=== PATIENT | female | born 1960 | race Caucasian/White ===

== ENCOUNTER 2024-09-14 15:07 | Outpatient (CLI) | payer MEDICARE, BC, SELFPAY | END 2024-09-14 15:08 | disposition home or self-care (01) | LOC: NFLDREF 09-16 04:16 | PROVIDERS: PCP Physician Assistant; Referring Provider Physician Assistant; Visit Provider Nurse Practitioner | DX: N30.01 Acute cystitis with hematuria (principal); B96.20 Unspecified Escherichia coli [E. coli] as the cause of diseases classified elsewhere | CPT/HCPCS: 87086 ==

== ENCOUNTER 2025-06-02 11:27 | Emergency (ER) | payer MEDICARE, BC, SELFPAY ==
[2025-06-02 11:30] VITALS: BP 112/79; PULSE 70; RESP 16; TEMP 35.8; O2SAT 95; BMI 35.2
--- NOTE | 2025-06-02 11:48 | ED.GENADULT ---
HPI - General Adult General Chief complaint: Jaw Injury/Pain Stated complaint: R side jaw pain Time Seen by Provider: 06/02/25 11:48 History of Present Illness HPI narrative: R lower jaw pain started , radiates to ear and back of head. also having R sided headaches, sent from urgent care and when they asked her how her vision was she noticed it has been worse than usual 65-year-old woman presenting to the emergency department with complaint right-sided jaw pain and swelling. This pain under the right lower jaw on kind of at the angle of the jaw began about 6 days ago. It radiates up to her ear and somewhat back around to her head as well. She has been having some intermittent pulsatile right-sided headaches lasting just a few seconds. Gestures to the temporal area. Presented to urgent care earlier today and admitted that her vision isn't as good. Does have a history of a dental problem on the upper right maxillary area but she does not believe she has had any issues with her mandible otherwise. No reported lightheadedness or dizziness. No fever. No trauma. No difficulty swallowing or breathing. Related Data Home Medications ?Medication ?Instructions ?Recorded ?Confirmed GLP1 subcut 06/05/24 06/02/25 atorvastatin 20 mg tablet 20 mg PO QPM 06/05/24 06/02/25 celecoxib 200 mg capsule 200 mg PO DAILY 06/05/24 06/02/25 escitalopram oxalate 10 mg tablet 10 mg PO QAM 06/05/24 06/02/25 estradiol 0.01% (0.1 mg/gram) 1 g vaginal 2XW 06/05/24 06/02/25 vaginal cream levothyroxine 75 mcg tablet 75 mcg PO DAILY 06/05/24 06/02/25 omeprazole 20 mg capsule,delayed 20 mg PO DAILY 06/05/24 06/02/25 release Previous Rx's ?Medication ?Instructions ?Recorded ondansetron 4 mg disintegrating 4 mg PO Q8H PRN nausea and 09/14/24 tablet vomiting #10 tabs Allergies Allergy/AdvReac Type Severity Reaction Status Date / Time No Known Drug Allergies Allergy Verified 06/02/25 10:44 Review of Systems Status of ROS: Reports: 6 or more systems reviewed and unremarkable except as noted in History and below PFSH PFSH Social History Smoking Status: Former smoker How often do you have a drink containing alcohol: never How often do you have six or more drinks on one occasion: Never AUDIT-C Alcohol total score: 0 Non-prescribed substance use: denies use Exam Narrative: Exam Narrative: Pleasant. NAD. But does appear as if she does not feel very good. Breathing easily. Neck is supple. No pulsatile masses. She is sore to palpation under the right submandibular area. I do not appreciate much swelling however. She is also sore to palpation at the angle of the jaw. Not TMJ tenderness discretely. TMs bilaterally are scarred left greater than right but no inflammatory change. She has some soreness to insertion at the right occipital scalp. Cranial nerves 2-12 intact. Pupils are equal and briskly reactive. Breathing easily. Heart in regular rate and rhythm. Oropharyngeal exam is without evidence of dental problems. No swelling the gingiva. I do not see inflammation of the parotid duct a nor of the submandibular or salivary area. I do not see any swelling at the temples. Const: Vital Signs, click to edit/add: Vital Signs - 24 hr 06/02/25 11:30 06/02/25 13:32 Temperature 96.4 F L Pulse Rate [Pulse Oximeter] 70 69 Respiratory Rate 16 16 Blood Pressure [Ri t Upper Arm] 112/79 120/73 Pulse Oximetry 95 97 Oxygen Delivery Me thod Room Air Room Air Documenting provider has reviewed patient's vital signs: yes Course Vital Signs Vital signs: Initial Vital Signs Temperature 96.4 F L 06/02/25 11:30 Temperature Source Temporal Artery Scan 06/02/25 11:30 Pulse Rate 70 06/02/25 11:30 Respiratory Rate 16 06/02/25 11:30 Blood Pressure 112/79 06/02/25 11:30 Blood Pressure Mean 90 06/02/25 11:30 Blood Pressure Position Sitting 06/02/25 11:30 Pulse Oximetry 95 06/02/25 11:30 Oxygen Delivery Method Room Air 06/02/25 11:30 Vital Signs Temperature 96.4 F L 06/02/25 11:30 Pulse Rate 70 06/02/25 11:30 Respiratory Rate 16 06/02/25 11:30 Blood Pressure 112/79 06/02/25 11:30 Pulse Oximetry 95 06/02/25 11:30 Oxygen Delivery Method Room Air 06/02/25 11:30 Temperature 96.4 F L 06/02/25 11:30 Pulse Rate 69 06/02/25 13:32 Respiratory Rate 16 06/02/25 13:32 Blood Pressure 120/73 06/02/25 13:32 Pulse Oximetry 97 06/02/25 13:32 Oxygen Delivery Method Room Air 06/02/25 13:32 Medical Decision Making MDM Narrative Medical decision making narrative: I do think this is some irritation of the submandibular gland based on physical exam. Might have some inflamed nodes more posteriorly causing some discomfort. I think concern urgent care was possible temporal arteritis/giant cell for which she was directed to the emergency department. Does not feel that she needs any treatment for headache or nausea at this time. Will check standard labs continue to monitor. Headache may be partially related to cervical muscle tension. Labs are reassuring; would not meet criteria for temporal arteritis per I think concern. The jaw discomfort I do not think is, also per concern, radiating cardiac pain. Instead I think is related to submandibular gland. Stable vitals no events on monitor during time in the emergency department. See patient discharge plan for further discussion Cold packs might be helpful yet to the neck but warm packs might help the discomfort under your submandibular jaw. Might also try sialagogues like lemon drops. Consider repeated daily forward pull-downs of your neck. See handout also for stretches for the upper back. These might be helpful going forward. Be seen for marked increase in swelling or pain or redness, fever. Wishing you well this iday season. Medical Records Medical records reviewed: Yes I reviewed the patient's medical records Lab Data Lab results reviewed: Yes I reviewed the patient's lab results Labs: Lab Results 06/02/25 Range/Units 12:55 WBC 5.17 (4.50-11.00) K/uL RBC 4.52 (4.00-5.20) m/uL Hgb 13.1 (12.0-16.0) gm/dL Hct 40.6 (33.0-51.0) % MCV 90 (80-100) fL MCH 29 (26-34) pg MCHC 32 (32-36) gm/dL RDW Coeff of Jeanette 14.6 (11.5-15.5) % Plt Count 122 L (140-440) K/uL Neut % (Auto) 60.5 (42.0-72.0) % Lymph % (Auto) 30.6 (20-44) % [place] % (Auto) 5.0 (0.0-11.0) % Eos % (Auto) 3.5 (0.0-7.0) % Baso % (Auto) 0.2 (0.0-3.0) % Neut # (Auto) 3.13 (1.7-7.0) K/uL Lymph # (Auto) 1.58 (0.90-2.90) K/uL [place] # (Auto) 0.30 (0.00-0.90) K/UL Eos # (Auto) 0.18 (0.00-0.50) K/uL Baso # (Auto) 0.01 (0.00-0.30) K/uL Abs Immat Gran (auto) 0.01 (0.00-0.30) K/uL Imm/Tot Granulo (auto) 0.2 % ESR 12 (2-20) mm/hr INR 0.84 L (0.91-1.10) Sodium 138 (135-149) mmol/L Potassium 4.4 (3.6-5.1) mmol/L Chloride 103 (96-114) mmol/L Carbon Dioxide 29 (20-32) mmol/L Anion Gap 6 L (7-15) mEq/L BUN 16 (7-30) mg/dL Creatinine 0.7 (0.5-1.5) mg/dL Estimated Creat Clear 49.80 Estimated GFR 95 ml/min Glucose 84 (60-115) mg/dL Calcium 9.3 (8.4-10.6) mg/dL Total Bilirubin 0.7 (0.1-1.5) mg/dL Direct Bilirubin 0.2 (0.0-0.5) mg/dL AST 42 H (12-35) U/L ALT 20 (4-35) U/L Alkaline Phosphatase 80 (40-150) U/L C-Reactive Protein < 0.5 L (0.5-1.0) mg/dL Total Protein 7.0 (6.0-8.3) g/dL Albumin 4.2 (3.3-5.0) g/dL Discharge Plan Discharge Clinical Impression: Headache, Occipital pain, Pain of submandibular gland Patient Disposition: Home, Self-Care Condition: Stable Additional Instructions: Cold packs might be helpful yet to the neck but warm packs might help the discomfort under your submandibular jaw. Might also try sialagogues like lemon drops. Consider repeated daily forward pull-downs of your neck. See handout also for stretches for the upper back. These might be helpful going forward. Be seen for marked increase in swelling or pain or redness, fever. Wishing you well this holiday season. Prescriptions: No Action escitalopram oxalate 10 mg tablet 10 mg PO QAM omeprazole 20 mg capsule,delayed release(DR/EC) 20 mg PO DAILY levothyroxine 75 mcg tablet 75 mcg PO DAILY celecoxib 200 mg capsule 200 mg PO DAILY estradiol 0.01 % (0.1 mg/gram) cream 1 g vaginal 2XW atorvastatin 20 mg tablet 20 mg PO QPM GLP1 subcut ondansetron 4 mg tablet,disintegrating 4 mg PO Q8H PRN (Reason: nausea and vomiting) Qty: 10 0RF Follow Up/Referrals: Sabi Atkins PA-C [Primary Care Provider, Family Practice] Stand Alone Forms: [employer] Info Instructions
--- OUTSIDE RECORDS SUMMARY | 2025-06-02 11:56 | XMS_ITS | Clinical Summary ---
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 Medications MedicationSigDispense QuantityRefillsLast FilledStart DateEnd DateStatus MULTIVITAMIN WITH MINERALS (MULTIVITAMIN & MINERAL FORMULA ORAL) Take 1 tablet by mouth 2 times daily.Active Calcium Citrate 250 mg calcium tablet Take 250 mg by mouth 2 times daily.Active escitalopram oxalate (LEXAPRO) 20 mg tablet Indications:Panic disorder,PRANAY (generalized anxiety disorder)Take 1 Tablet (20 mg) by mouth once daily in the morning. 90 Tablet 5Active LORazepam (ATIVAN) 0.5 mg tab Indications:Panic disorderTake 1 Tablet (0.5 mg) by mouth every 6 hours if needed for Anxiety or Sleep. 20 Tablet 5Active atorvastatin (LIPITOR) 20 mg tablet Indications:Mixed hyperlipidemiaTake 1 Tablet (20 mg) by mouth at bedtime. 90 Tablet 5Active celecoxib (CELEBREX) 200 mg capsule Indications:ArthritisTake 1 Capsule (200 mg) by mouth once daily with a meal. 90 Capsule 5Active estradioL (ESTRACE) 0.01% (0.1 mg/g) vaginal cream Indications:Atrophic vaginitisInsert 1 gram intravaginally 2 times a week for maintenance 42.5 g 5Active levothyroxine (SYNTHROID) 75 mcg tablet Indications:Hypothyroidism, unspecified typeTake 1 Tablet (75 mcg) by mouth once daily. 90 Tablet 5Active omeprazole (PRILOSEC) 20 mg Delayed-Release capsule Indications:Gastroesophageal reflux disease, unspecified whether esophagitis presentTake 1 Capsule (20 mg) by mouth once daily before a meal. 90 Capsule 5Active medication order composer Indications:Morbid obesity (HC)GLP-1 agonist-bought from online pharmacy 5Active Active Problems ProblemNoted DateDiagnosed DateEncounter for screening for osteoporosis 02/09/2022 Overview (02/09/2022): Normal bone density Feb 2022. Repeat 3-5 years. Esophageal qzmbyi1408/02/2018Status post left knee idhlbbrpibu23/17/2019Anemia 09/16/2014S/P total knee avdrnyfttaqg93/14/2015 Overview (09/15/2014): Right AVF (arteriovenous fistula)-A-V fistula on the right sigmoid sinus, supplied by single dominant branch from the occipital artery.04/08/2013 Overview (01/25/2022): Had surgery to remove. No current issues. Arteriovenous iqralnz7603/12/2013 Overview (09/14/2014): cerebral Vitamin B12 cbnozmpyha74/28/2012Morbid wjcjavj1702/20/2012Mixed hyperlipidemia 02/20/2012DepressionArthritis Overview (09/14/2014): knees Hypothyroid Overview (09/14/2014): with Graves's disease Vitamin D deficiencyAnxiety Overview (09/14/2014): with Grave's disease Resolved Problems ProblemNoted DateDiagnosed DateResolved DatePulsatile tinnitus; right ear. chlorhydria0028Jkumwysebpngdmiasq46/14/2015 Srytzrnv40/14/2015 Overview (09/14/2014): rt ear Immunizations ImmunizationAdministration DatesNext DueHepatitis A (Adult)05/15/2016Influenza A (H1N1), Zyqhzusntux59/21/2009Influenza, IIV3 (Age >=3 years)02/09/2012, 03/21/2011,03/17/2010Influenza, PZE462/,04/11/2019,04/24/2018,03/20/2017, 05/15/2016,03/02/2015,03/05/2014,03/06/2013Influenza, IIV4 (=>6mos) MDV 04/05/2020Tdap01/25/2022,04/01/2009Typhoid (injectable)05/15/2016Zoster (Shingrix-RZV, recombinant)06/23/2021,03/31/2021 Family History Medical HistoryRelationNameCommentsHyperlipidemiaBrother 1HyperlipidemiaBrother 2Heart DiseaseFatherAcute CO at age 57Cancer-breastMaternal GrandmotherHeart DiseasePaternal Uncle 1Acute CO at age 50'sHeart DiseasePaternal Uncle 2Acute CO at age 50'sRelationNameStatusCommentsBrother 1Brother 2FatherDeceasedMaternal GrandmotherMotherDeceasedPaternal Uncle 1Paternal Uncle 2 Social History Tobacco UseTypesPacks/DayYears UsedDateSmoking Tobacco: PnhajiGazmfneliu2Qlvm: 06/04/1999Smokeless Tobacco: Never Tobacco Cessation:Counseling Given: Yes Comments:quit 1999 Alcohol UseStandard Drinks/WeekCommentsYes0.8 (1 standard drink = 0.6 oz pure alcohol)infreq --PHQ-2AnswerDate RecordedPHQ-2 TOTAL JQZKD507Social ConnectionsAnswerDate RecordedDo you often feel lonely or isolated from those around you?Financial Resource StrainAnswerDate RecordedDifficulty of Paying Living Hswsotxf194/18/2025Difficulty of Paying Living ExpensesNot on file 02/19/2025Food InsecurityAnswerDate RecordedDo you worry your food will run out before you are able to buy more?Transportation NeedsAnswerDate RecordedDoes lack of transportation keep you from medical appointments?1 02/19/2025Does lack of transportation keep you from work, meetings or getting things that you need?Housing StabilityAnswerDate RecordedWhat is your housing situation today?UtilitiesAnswerDate RecordedDo you have trouble paying for utilities (for example, heat, electricity, water, phone)?1 02/19/2025CommentsNoSex and Gender InformationValueDate RecordedSex Assigned at BirthNot on fileLegal AzpMhtjut06/14/2013 6:59 AM CSTGender Identity Not on fileSexual OrientationNot on file Last Filed Vital Signs Vital SignReadingTime TakenCommentsBlood Mpyomtji938/7009 8:17 AM CDT Ombie827902/19/2025 8:17 AM MXGVdsfdtjhshm84.7 ??C (98.1 ??F)08/31/2023 7:52 AM CDTRespiratory Xbcy464912/26/2022 12:11 PM CDTOxygen Mazzqhkoay51%02/19/2025 8:17 AM CDTInhaled Oxygen Concentration--Nrekdu51.6 kg (213 lb)02/19/2025 8:17 AM CDT Hxpqpy576.5 cm (5' 5.16)02/19/2025 8:17 AM CDTBody Mass Index35.27002/19/2025 8:17 AM CDT Plan of Treatment Health MaintenanceDue DateLast DoneCommentsPneumococcal series for age 50+ (1 of 1 - PCV)2009RSV vaccine for adults or (1 - Risk 50-74 years 1- dose series)2009DEXA/DXA scan for age 65+/2COVID-19 vaccine series (2024- season), 05/03/2023, 03/10/2022, Additional history existsInfluenza Vaccine (#1)509/, 04/05/2020, 04/11/2019, Additional history existsColonoscopy through age 75002/02/2026 02/02/2021 (Completed outside of [facility])BMI (ht and wt on same day) for age 18+/, 02/18/2024, 02/16/2023, Additional history exists Medicare Wellness for age 65+/Depression screening for age 12+/, 02/19/2025, 01/01/2025, Additional history exists Mammogram for age 40-/, 02/20/2023, 02/01/2022, Additional history existsLipids for age 45-/, 02/14/2023, 01/25/2022 Tetanus /, 04/01/2009Zoster (shingles) series for age 50+Omtbgmolo56/20/2022, 03/31/2021Hepatitis C screening for age 18-79Completed 01/25/2022Hepatitis B series for 19+Aged OutNo longer eligible based on patient's age to complete this topic Medical Devices ImplantedTypeAreaManufacturerDevice IdentifierShelf Expiration DateModel / Serial / LotSimplex Bone Cement Implanted:Qty: 1 on 09/15/2014 by Haseeb Pfeiffer MD at [facility] Right: Knee12/02/2016/ / [id number] Cruciate Retaining Cemented Implanted:Qty: 1 on 09/15/2014 by Haseeb Pfeiffer MD at [facility] Right: Knee03/04/2019/ / [id number] Tray Fixed Bearing Implanted:Qty: 1 on 09/15/2014 by Haseeb Pfeiffer MD at [facility] Right: Knee05/04/2024/ / [id number] Dome Patella 3 Peg Implanted:Qty: 1 on 09/15/2014 by Haseeb Pfeiffer MD at [facility] Right: Knee09/02/2018/ / [id number] Insert Fixed Bearing Curved Implanted:Qty: 1 on 09/15/2014 by Haseeb Pfeiffer MD at [facility] Right: Knee02/02/2019/ / [id number] Implanted:Qty: 1 on 08/02/2018 by Lele Uribe MD at [facility] Left: [facility] Dkxeqzutrutk58/27/2023/ / [id number] Component Implanted:Qty: 1 on 08/02/2018 by Lele Uribe MD at [facility] Left: [facility]06/17/2023/ / [id number] Bearing Insert Implanted:Qty: 1 on 08/02/2018 by Lele Uribe MD at [facility] Left: [facility]12/05/2022/ / [id number] Implanted:Qty: 1 on 08/02/2018 by Lele Uribe MD at [facility] N/A: [facility]1/ / H85M Procedures Procedure NamePriorityDate/TimeAssociated DiagnosisCommentsXR MAMMO CHELSEA BILAT EQDIOUXkjocis45/23/2025 7:36 AM CDT Visit for screening mammogram LIPID PANEL W REFLEX MEASURED FCQKzaezmw81/18/2025 8:52 AM CDT Mixed hyperlipidemia XR DXA BONE DENSITY 2 SITES UZMPXAsthgcj82/31/2022 9:54 AM CDT S/P gastric sleeve procedure ANTI IFMLjdudhw13/24/2022 9:48 AM CDT Need for hepatitis C screening test from Last 3 Months or Most Recently Relevant to Health Maintenance Results * XR MAMMO CHELSEA BILAT SCREEN (02/24/2025 7:36 AM CDT)Anatomical RegionLaterality ModalityBREASTS, Breast Left, Breast RightBilateralMammographySpecimen (Source)Anatomical Location / LateralityCollection Method / VolumeCollection TimeReceived Time Impressions 02/25/2025 7:49 AM CDT There is no radiographic evidence for malignancy. Recommend annual mammograms. MAMMOGRAM ASSESSMENT: ??ACR 1 Negative PATIENTS: You will also receive a letter with your examination results in an easy to read format. ??If you have questions about your results, please contact your referring provider. Narrative 02/25/2025 7:49 AM CDT For Patients: As a result of the Cures Act, medical imaging exams and procedure reports are released immediately into your electronic medical record. You may view this report before your referring provider. If you have questions, please contact your health care provider. XR MAMMO CHELSEA BILAT SCREEN [[id number]] CLINICAL HISTORY: ??This is an asymptomatic 64 y.o. patient. INDICATION FOR EXAM: Mammogram Screening. TECHNIQUE: CC and MLO views were obtained. ??This study was evaluated with the assistance of Computer-Aided Detection. Breast Tomosynthesis was used in interpretation. COMPARISON FILM: Yes 02/20/23 [facility] 02[facility]01[facility]22 [facility] FINDINGS: ??The breasts are almost entirely fatty. There are no dominant masses, suspicious micro calcifications or areas of architectural distortion. Authorizing ProviderResult TypeResult StatusJennclovis Arunaelliott Atkins PAMAMMOFinal Result * (ABNORMAL) LIPID PANEL W REFLEX MEASURED LDL (02/19/2025 8:52 AM CDT)Component ValueRef RangeTest MethodAnalysis TimePerformed AtPathologist Signature CHOLESTEROL, HJXGK748(H)<200 mg/dL02/20/2025 4:47 AM CDT[facility] AEQKYQYSQKQHN31<150 mg/dL02/20/2025 4:47 AM CDTQUEST DIAGNOSTICSHDL FUVLQMWQNBU30> OR = 50 mg/dL02/20/2025 4:47 AM CDTQUEST DIAGNOSTICSNON HDL BGKRTVOTAMZ667(H)<130 mg/dL (calc)02/20/2025 4:47 AM CDT[facility] Comment: For patients with diabetes plus 1 major ASCVD risk factor, treating to a non-HDL-C goal of <100 mg/dL (LDL-C of <70 mg/dL) is considered a therapeutic option. CHOL/HDLC RATIO3.8<5.0 (calc)02/20/2025 4:47 AM CDT[facility] LDL-XZWWPXKNAOT801(H)mg/dL (calc)02/20/2025 4:47 AM CDTQUEST DIAGNOSTICSComment: Reference range: <100 Desirable range <100 mg/dL for primary prevention; <70 mg/dL for patients with CHD or diabetic patients with > or = 2 CHD risk factors. LDL-C is now calculated using the Douglas calculation, which is a validated novel method providing better accuracy than the Friedewald equation in the estimation of LDL-C. Marcelo SS et al. FELIPE. 2013;310(19): 9611-0273 (http://education.51Talk/faq/WPM071) Specimen (Source)Anatomical Location / LateralityCollection Method / Volume Collection TimeReceived TimeBloodBLOOD SPECIMEN / UnknownQuest Collect / Unknown 02/19/2025 8:52 AM CDT02/19/2025 8:53 AM CDT Narrative Authorizing ProviderResult TypeResult StatusJennifer Aruna Atkins PACHEMISTRYFinal ResultPerforming OrganizationAddressCity/State/ZIP CodePhone Number [facility] [address] [address], * XR DXA BONE DENSITY 2 SITES AXIAL (02/01/2022 9:54 AM CDT)Anatomical Region LateralityModalitySpine, HIPS, HIPL, HIPROtherSpecimen (Source)Anatomical Location / LateralityCollection Method / VolumeCollection TimeReceived Time Impressions 02/09/2022 12:45 PM CDT Normal bone density. RECOMMENDATIONS: The National Osteoporosis Foundation recommends pharmacologic treatment for patients with T-scores of -2.5 or less, patients with prior history of fragility fractures, or patients with 10-year probability of greater than 3% at hips or greater than 20% of suffering major osteoporotic fractures. Recommend continued optimization of calcium and vitamin D intake through dietary means and/or supplementation and regular exercise. Repeat scan recommended in 3-5 years. Ani Gill PA-C [facility] 02/09/2022 Narrative 02/09/2022 12:45 PM CDT For Patients: Results are automatically released to your [employer] ([employer]) account once available, in compliance with federal regulations. This means that you may see your results before your provider has had a chance to review them. Please allow 2-3 business days for your provider to comment on the results. XR DXA Bone Mineral Density (BMD) EXAM LOCATION: [facility] [address] [facility] [address] PATIENT NAME: Kenyatta Mujica DATE OF : 1960 EXAM DATE: 02/01/2022 REQUESTING PROVIDER: Wanda Uribe PA GENDER AT : female HEIGHT: 5' 5.35 (01/25/2022) WEIGHT: ??246 lb (01/25/2022) MENOPAUSAL STATUS: Postmenopausal RACE/ETHNICITY: White RISK FACTORS: Smoking (prior) and White Race CURRENT MEDICATION FOR BONE LOSS: NONE INDICATION: Initial scan for screening and Post-Menopause COMPARISON DATE(S): None DXA scans are compared to prior studies for a patient only when the two (or more) studies were performed on the same scanner. It is not possible to compare data generated on one scanner to data from another because there are not standards in DXA equipment. This applies even if the two scanners are made by the same physiology teacher. PROCEDURE: Dual-energy x-ray absorptiometry performed with routine technique. Reporting is completed in the form of a T-score. The T-score represents the standard deviation from peak bone mass based on young healthy adult. A Z-score is used for diagnosis in premenopausal women, and for men under the age of 50. FINDINGS: RESULT LUMBAR SPINE L1 - L4(WO L3) BMD: 1.338 g/cm2 T-Score: + 1.2 Z-Score: + 1.5 Change from prior: ??None RESULTS FEMUR Left femoral neck BMD: 1.027 g/cm2 T-Score: - 0.1 Z-Score: + 0.5 Change from prior: ??None Right femoral neck BMD: 1.057 g/cm2 T-Score: + 0.1 Z-Score: + 0.7 Change from prior: ??None Left hip BMD: 1.034 g/cm2 T-Score: + 0.2 Z-Score: + 0.4 Change from prior: ??None Right hip BMD: 1.030 g/cm2 T-Score: + 0.2 Z-Score: + 0.4 Change from prior: ??None WHO criteria: Normal: T-score at or above -1 SD Osteopenia: T-score between -1.1 and -2.4 SD Osteoporosis: T-score at or below -2.5 SD Authorizing ProviderResult TypeResult StatusWanda Uribe PADEXAFinal Result * ANTI HCV (01/25/2022 9:48 AM CDT)ComponentValueRef RangeTest MethodAnalysis TimePerformed AtPathologist SignatureHEPATITIS C ANTIBODYNon-Reactive Non-Gclzzoth58/24/2022 4:12 PM [facility] Comment:Antibodies to HCV not detected; does not exclude the possibility of exposure to HCV.Specimen (Source)Anatomical Location / LateralityCollection Method / VolumeCollection TimeReceived TimeBloodBLOOD SPECIMEN / Unknown Venipuncture / Ojdvpil4101/25/2022 9:48 AM CDT01/25/2022 9:52 AM CDT Narrative Authorizing ProviderResult TypeResult StatusWanda Uribe PASEND OUTSFinal ResultPerforming OrganizationAddressCity/State/ZIP CodePhone Number [facility] [address] [place] [address], from Last 3 Months or Most Recently Relevant to Health Maintenance Insurance * Guarantor: Kenyatta Mujica TypeRelation to PatientDate of BirthPhone Billing AddressPersonal/YsmfmkFgfp1960 [address] [place] [address] * Guarantor: Kenyatta Mujica TypeRelation to PatientDate of BirthPhone Billing AddressPersonal/LlllzlLchi1960 [address] [place] [address] Advance Directives * Full Code (Latest Code Status on File) Date ActivatedDate InactivatedComments08/02/2018 12:23 PM08/04/2018 2:21 PM * Full Code Date ActivatedDate InactivatedComments08/02/2018 8:32 AM08/02/2018 12:22 PM * Full Code Date ActivatedDate InactivatedComments09/15/2014 7:42 AM09/18/2014 2:47 PM * Full Code Date ActivatedDate InactivatedComments09/15/2014 5:11 AM09/15/2014 7:42 AM * Full Code Date ActivatedDate InactivatedComments02/21/2012 5:14 AM02/22/2012 7:22 PM Care Teams Team MemberRelationshipSpecialtyStart DateEnd Date Sabi Atkins PA [address] [place] [address] PCP - GeneralPhysician Assistant01/05/23
[2025-06-02 13:24] LABS: Hematocrit* 40.6 % (33.0-51.0); Hemoglobin* 13.1 gm/dL (12.0-16.0); Immature Granulocytes Abs Auto 0.01 K/uL (0.00-0.30); Immature Granulocytes Pct Auto 0.2 %; Lymphocytes Absolute Auto 1.58 K/uL (0.90-2.90); Mean Corpuscular HGB Conc 32 gm/dL (32-36); Mean Corpuscular Hemoglobin 29 pg (26-34); Mean Corpuscular Volume 90 fL (80-100); RDW Coefficient of Variation % 14.6 % (11.5-15.5); Red Blood Count* 4.52 m/uL (4.00-5.20); White Blood Count* 5.17 K/uL (4.50-11.00)
[2025-06-02 13:32] VITALS: BP 120/73; PULSE 69; RESP 16; O2SAT 97
[2025-06-02 13:45] LABS: Slide Review Reflex No
[2025-06-02 13:50] LABS: Albumin* 4.2 g/dL (3.3-5.0); Chloride* 103 mmol/L (96-114); Potassium* 4.4 mmol/L (3.6-5.1); Sodium* 138 mmol/L (135-149)
[2025-06-02 13:53] LABS: Alanine Aminotransferase* 20 U/L (4-35); Alkaline Phosphatase* 80 U/L (40-150); Anion Gap 6 mEq/L (7-15); Aspartate Amino Transferase* 42 U/L (12-35); Bilirubin Direct* 0.2 mg/dL (0.0-0.5); Bilirubin Total* 0.7 mg/dL (0.1-1.5); Blood Urea Nitrogen* 16 mg/dL (7-30); Carbon Dioxide* 29 mmol/L (20-32); Creatinine* 0.7 mg/dL (0.5-1.5); Est. Creatinine Clearance* 49.80; Estimated Glomerular Filt Rate 95 ml/min; INR 0.84 (0.91-1.10); Prothrombin Time 12.2 Seconds; Total Protein* 7.0 g/dL (6.0-8.3)
[2025-06-02 13:54] LABS: Calcium* 9.3 mg/dL (8.4-10.6); Glucose* 84 mg/dL (60-115)
[2025-06-02 14:12] LABS: Erythrocyte SedimentationRate* 12 mm/hr (2-20)
== END 2025-06-02 14:42 | disposition home or self-care (01) ==
PROVIDERS: Emergency Provider Family Medicine; PCP Physician Assistant
DX: R51.9 Headache, unspecified (principal); K11.8 Other diseases of salivary glands; H57.11 Ocular pain, right eye; R68.84 Jaw pain
CPT/HCPCS: 36415; 80048; 80076; 85025; 85610; 85651; 86140; 99283; 99284